=== PATIENT | male | born 1980 | race Caucasian/White ===

== ENCOUNTER 2020-09-16 07:08 | Inpatient (IN) | payer MEDICAID, OTHER ==
[~2020-09-16] VITALS: Ht 175.3 cm; Wt 97.2 kg
[2020-09-21] MEDS ORDERED: acetaminophen 325mg tablet PO PRN ×2 (10:30)
[2020-09-21] MEDS ORDERED: magnesium hydroxide 30ml (MOM) UD suspension PO PRN (10:30)
[2020-09-21] MEDS ORDERED: mag hydrox/Alum hydrox/simeth 30ml oral suspension PO PRN (10:30)
[2020-09-21] MEDS ORDERED: loperamide 2mg capsule PO PRN (10:30)
[2020-09-21 10:43] VITALS: BP 148/87
[2020-09-21] MEDS ORDERED: CEPH-572 PO (12:56)
[2020-09-21] MEDS ORDERED: DOXY-1 PO (12:56)
[2020-09-21] MEDS ORDERED: CLON-527 PO (13:34)
[2020-09-21] MEDS ORDERED: ESZO1TAB11 PO (13:34)
[2020-09-21] MEDS ORDERED: ALLO300T8 PO (13:34)
[2020-09-21] MEDS ORDERED: DULO-31 PO (13:34)
[2020-09-21] MEDS ORDERED: OXYC-145 PO (13:34)
[2020-09-21] MEDS ORDERED: zolpidem 5mg tablet PO PRN (14:05)
[2020-09-21] MEDS: oxyCODONE/APAP 5-325mg tablet PO PRN ×2 (14:19→21:09)
[2020-09-21] MEDS: clonazePAM 1mg tablet PO PRN (14:21)
--- NOTE | 2020-09-21 14:36 | NUR ---
ADMIT NOTE Pt is a 40y/o direct admit from [facility] on a 5150 for DTS, arriving on the unit at 1030. Safety check completed and belongings inventoried. Pt presented to ED in [place] on 09/15/20 for a large self inflicted left arm laceration. Pt states it was not an attempt to kill himself, but rather an attempt to prove to my mother that I would do it. Reports hx of PTSD, Depression, and anxiety and denies any prior suicide attempts. States that the stress from being his parents caretakers for the past 2 years has been overwhelming. Medical Hx: gout, psoriatic arthritis, chronic pain (L5S1 fusion) Covid: negative Left wrist Wound care instructions: wash wound daily with soap and water and blot dry. Change dressing daily. F/U with Orthopedics 14 days after staple placement (09/29/20) per Dr. Arriaga at [facility]
[2020-09-21] MEDS: cephalexin 500mg capsule PO SCH ×2 (17:35→21:08)
[2020-09-21 20:08] VITALS: BP 132/72
[2020-09-21] MEDS ORDERED: traZODone 50mg tablet PO SCH (21:00)
[2020-09-21] MEDS: DOXYCYCLINE 100MG CAPSULE PO SCH (21:07)
[2020-09-21] MEDS: lithium carbonate 300mg SR tablet (LithoBID) PO SCH (21:08)
[2020-09-21] MEDS: lactobacillus rhamnosus 10,000 MMU CELLS/CAPSULE PO SCH (21:08)
--- NOTE | 2020-09-22 00:51 | NUR ---
Nursing Progress Note Legal hold: 5150 Client on involuntary status for DTS Report received from nurse with use of SBAR. Why are they here: Pt is a 40y/o direct admit from [facility] on a 5150 for DTS, arriving on the unit at 1030. Safety check completed and belongings inventoried. Pt presented to ED in [place] on 09/15/20 for a large self inflicted left arm laceration. Pt states it was not an attempt to kill himself, but rather an attempt to prove to my mother that I would do it. Reports hx of PTSD, Depression, and anxiety and denies any prior suicide attempts. States that the stress from being his parents caretakers for the past 2 years has been overwhelming. Assessment What has happened this shift: Pt awake in room on bed at start of shift. His affect is bright and cheerful. When he talks about his self injury his demeanor is incongruent with the seriousness of his injury. His explanation of why he did it was because when he threatened to do it his mother said "go ahead I don't care". The pt seems totally unaware that this is not a logical explanation for self injury. Reviewed pts medications with him he requested an increase in his Percocet. Ghada WATTS did not increase his Percocet but added an order for ibuprofen if needed. Pt seemed satisfied, he did not ask for ibuprofen. Pt has a extensive knowledge of street drugs. That OxyContin is "better" crushed That Heroin can substitute for prescription pain medications. Pt said he has taken Ambien with a glass of wine to green party. Pt came to group room for snack spent the rest of the time in his room. S/I, H/I: Denies A/VH: Denies Sleep: Asleep at this time ADL's: Independent. Group attendance: NA Were meds taken: Yes Any med S/E No Mental Status Exam Appearance: Clean and well groomed Eye contact: Good Behavior: Pleasant and cooperative Speech: Clear normal rate and volume Mood: Cheerful incongruent with circumstance Affect: Bright Thought process: Logical Linear Thought Content: Medications Cognition: AOx4 Insight: poor Judgment: poor Interventions Interventions PRN's used: Ambien Therapeutic interventions: 1:1 assessment, establishment of rapport, therapeutic communication, active listening, medication administration/education/monitoring, maintained a safe and therapeutic environment, and maintained Q 15min safety checks. Restraints/seclusion/emergency medication: None Justification of Continued Inpatient Treatment: Patient a high risk discharge r/t to self mutilation. Pt to requires medication adjustment and a therapeutic milieu in interrupt current crisis.
[2020-09-22] MEDS: oxyCODONE/APAP 5-325mg tablet PO PRN ×5 (02:01→22:16)
[2020-09-22] MEDS: ibuprofen tablet 400 MG TABLET PO PRN (05:19)
[2020-09-22 07:32] VITALS: BP 113/88
[2020-09-22] MEDS: DOXYCYCLINE 100MG CAPSULE PO SCH ×2 (07:40→20:20)
[2020-09-22] MEDS: allopurinol 300 MG tablet PO SCH (07:41)
[2020-09-22] MEDS: lactobacillus rhamnosus 10,000 MMU CELLS/CAPSULE PO SCH (07:41)
[2020-09-22] MEDS: duloxetine 30mg CAPSULE.DR PO SCH (07:41)
[2020-09-22] MEDS: cephalexin 500mg capsule PO SCH ×4 (07:41→20:20)
[2020-09-22] MEDS: clonazePAM 1mg tablet PO PRN (07:47)
[2020-09-22] MEDS ORDERED: duloxetine 30mg CAPSULE.DR PO SCH (08:00)
[2020-09-22 08:33] LABS: HEMOGLOBIN A1C 5.6 % (4.5-6.2)
[2020-09-22 09:23] LABS: CHOL/HDL RATIO 5.7 (0.00-4.99); CHOLESTEROL 189 MG/DL (0-200); HDL CHOLESTEROL 33 MG/DL (35-60); LDL CHOLESTEROL 105 MG/DL (50-100); TRIGLYCERIDES 408 MG/DL (20-135)
--- NOTE | 2020-09-22 15:33 | NUR ---
Nursing Progress Note Legal hold: 5150 Client on involuntary status for DTS Report received from nurse with use of SBAR. Why are they here: Pt is a 40y/o direct admit from [facility] on a 5150 for DTS, arriving on the unit at 1030. Safety check completed and belongings inventoried. Pt presented to ED in [place] on 09/15/20 for a large self inflicted left arm laceration. Pt states it was not an attempt to kill himself, but rather an attempt to prove to my mother that I would do it. Reports hx of PTSD, Depression, and anxiety and denies any prior suicide attempts. States that the stress from being his parents caretakers for the past 2 years has been overwhelming. Assessment What has happened this shift: Pt awake in room on bed at start of shift. His affect is bright and cheerful. Pt initiated dressing change to his left arm wound and assisted the nurse during drsg change which he tolerated well with apparent no pain. Pt did c/o pain after drsg change complete. He also c/o pain in his lower back. Pt requesting medications for pain and anxiety and was given percocet and klonopin. PA later dc'd the klonopin and pt stated that it is probably a mistake b/c he's been taking it for years, but at [facility] report says he hasn't had it prescribed for 12 months. Pt has bright affect and denies suicidal thoughts at this time. S/I, H/I: Denies A/VH: Denies Sleep: Asleep at this time ADL's: Independent. Group attendance: NA Were meds taken: Yes Any med S/E No Mental Status Exam Appearance: Clean and well groomed Eye contact: Good Behavior: Pleasant and cooperative Speech: Clear normal rate and volume Mood: Cheerful incongruent with circumstance Affect: Bright Thought process: Logical Linear Thought Content: Medications Cognition: AOx4 Insight: poor Judgment: poor Interventions Interventions PRN's used: Therapeutic interventions: 1:1 assessment, establishment of rapport, therapeutic communication, active listening, medication administration/education/monitoring, maintained a safe and therapeutic environment, and maintained Q 15min safety checks. Restraints/seclusion/emergency medication: None Justification of Continued Inpatient Treatment: Patient a high risk discharge r/t to self mutilation. Pt to requires medication adjustment and a therapeutic milieu in interrupt current crisis.
[2020-09-22 20:01] VITALS: BP 128/73
[2020-09-22] MEDS: traZODone 50mg tablet PO SCH ×2 (20:20→21:05)
[2020-09-22] MEDS: lithium carbonate 300mg SR tablet (LithoBID) PO SCH (20:21)
--- NOTE | 2020-09-22 22:20 | NUR ---
Nursing Progress Note Legal hold: 5150 Client on involuntary status for DTS Report received from nurse with use of SBAR. Why are they here: Pt is a 40y/o direct admit from [facility] on a 5150 for DTS, arriving on the unit at 1030. Safety check completed and belongings inventoried. Pt presented to ED in [place] on 09/15/20 for a large self inflicted left arm laceration. Pt states it was not an attempt to kill himself, but rather an attempt to prove to my mother that I would do it. Reports hx of PTSD, Depression, and anxiety and denies any prior suicide attempts. States that the stress from being his parents caretakers for the past 2 years has been overwhelming. Assessment What has happened this shift: Pt was in the rec room at change of shift watching tv. He denies s/i and talks at length about situation at home with his parents. Pt states he is constantly cleaning up after his mother and they treat him like a child only allowing him to use the car to buy groceries but not to go out. He states his father is appreciative of him helping out but not his mother. He states the relationship with his mother is stressful for him and he is hopeful he will be able to move in with his sister. He states he would like to go back to work but with his arm the way it is, he will be out of work for at least 6 months before he will be able to return to work. Pt c/o pain in his arm and asks for percocet before going to bed. S/I, H/I: Denies A/VH: Denies Sleep: see sleep hours ADL's: Independent. Group attendance: NA Were meds taken: Yes Any med S/E No Mental Status Exam Appearance: Clean and well groomed Eye contact: Good Behavior: Pleasant and cooperative Speech: Clear normal rate and volume Mood: pleasant Affect: Bright Thought process: Logical Linear Thought Content: moving out of his parents home, frustrations with living with parents and overwhelmed with taking care of them. Cognition: AOx4 Insight: fair Judgment: poor Interventions Interventions PRN's used: percocet Therapeutic interventions: 1:1 assessment, establishment of rapport, therapeutic communication, active listening, medication administration/education/monitoring, maintained a safe and therapeutic environment, and maintained Q 15min safety checks. Restraints/seclusion/emergency medication: None Justification of Continued Inpatient Treatment: Patient a high risk discharge r/t to self mutilation. Pt to requires medication adjustment and a therapeutic milieu in interrupt current crisis.
[2020-09-23 07:06] VITALS: BP 102/56
[2020-09-23] MEDS: oxyCODONE/APAP 5-325mg tablet PO PRN ×3 (08:11→20:17)
[2020-09-23] MEDS: DOXYCYCLINE 100MG CAPSULE PO SCH ×2 (08:11→20:17)
[2020-09-23] MEDS: lactobacillus rhamnosus 10,000 MMU CELLS/CAPSULE PO SCH (08:11)
[2020-09-23] MEDS: cephalexin 500mg capsule PO SCH ×4 (08:11→20:17)
[2020-09-23] MEDS: allopurinol 300 MG tablet PO SCH (08:12)
[2020-09-23] MEDS: duloxetine 30mg CAPSULE.DR PO SCH (08:12)
[2020-09-23] MEDS: ibuprofen tablet 400 MG TABLET PO PRN (11:10)
--- NOTE | 2020-09-23 14:45 | NUR ---
Met with Yonny to complete psychosocial assessment. He reported he is planning on going to his sister's house in [place] upon discharge. Encouraged him to access rehab and informed him that [facility] pays for it and that we could call to get approval and referral. Yonny declined and stated he does not want to go to rehab right now. Yonny did not have sister's number and gave travel writer permission to call his mother to get the sister's phone number. Called Yonny's mom, Olga ([phone]# [phone]). Olga reported Yonny needs to go to rehab and that she had found over 100 xanax bars in a lunesta pill bottle. She noted this is what caused the argument before Yonny cut himself. She noted she is afraid of him and had thought he was going to try to stab her with the knife. She provided the sister's phone number and stated she is going to call the sister and tell her to not let Yonny stay with her. Called Yonny's sister, Clemencia (ph# [phone]). She reported her mother had already tried calling her. Informed her that Yonny wants to stay with her which she was aware of. Informed her that [facility], has recommended that Yonny go to rehab. Clemencia reported she cannot go against medical advice and will not picker and packer Yonny until he goes to rehab. Explained that we cannot force Yonny to go, rather it is has to be a choice. Informed her that [facility] is not a rehab and he would need to go elsewhere. Informed Yonny that his sister is not going to allow him to stay with her unless he goes to rehab. Re-visited rehab as an option and again he stated he is not interested. He reported he will find another ride and a way out of here. NIGEL Ramsey
--- NOTE | 2020-09-23 17:20 | NUR ---
Nursing Progress Note Legal hold: 5150 Client on involuntary status for DTS Report received from Sandi RODRIGUEZ with use of SBAR. Why are they here: Pt is a 40y/o direct admit from [facility] on a 5150 for DTS, arriving on the unit at 1030. Safety check completed and belongings inventoried. Pt presented to ED in [place] on 09/15/20 for a large self inflicted left arm laceration. Pt states it was not an attempt to kill himself, but rather an attempt to prove to my mother that I would do it. Reports hx of PTSD, Depression, and anxiety and denies any prior suicide attempts. States that the stress from being his parents caretakers for the past 2 years has been overwhelming. Assessment What has happened this shift: Received pt asleep in bed. Pt awoke for breakfast. Pt has bright affect and is social. Pt continues to endorse depression, but denies suicidal thoughts. Pt continues to be concerned with getting his klonopin "fixed". After speaking with PA, pt did not trying anymore to get more benzodiazepines, but requesting more pain meds: percocet and ibuprofen. Pt independent with dressing change to left arm wound. Pt visible on the unit, but has limited interaction with peers and is more interactive with staff. S/I, H/I: Denies A/VH: Denies Sleep: Asleep at this time ADL's: Independent. Group attendance: NA Were meds taken: Yes Any med S/E No Mental Status Exam Appearance: Clean and well groomed Eye contact: Good Behavior: Pleasant and cooperative Speech: Clear normal rate and volume Mood: Cheerful incongruent with circumstance Affect: Bright Thought process: Logical Linear Thought Content: Medications Cognition: AOx4 Insight: poor Judgment: poor Interventions Interventions PRN's used: percocet, ibuprofen Therapeutic interventions: 1:1 assessment, establishment of rapport, therapeutic communication, active listening, medication administration/education/monitoring, maintained a safe and therapeutic environment, and maintained Q 15min safety checks. Restraints/seclusion/emergency medication: None Justification of Continued Inpatient Treatment: Patient a high risk discharge r/t to self mutilation. Pt to requires medication adjustment and a therapeutic milieu in interrupt current crisis.
[2020-09-23 19:15] VITALS: BP 123/83
[2020-09-23] MEDS: traZODone 50mg tablet PO SCH ×2 (20:16→21:03)
[2020-09-23] MEDS: lithium carbonate 300mg SR tablet (LithoBID) PO SCH (20:16)
--- NOTE | 2020-09-23 22:11 | NUR ---
Nursing Progress Note Legal hold: 5150 Client on involuntary status for DTS Report received from Izaiah RODRIGUEZ with use of SBAR. Why are they here: Pt is a 40y/o direct admit from [facility] on a 5150 for DTS, arriving on the unit at 1030. Safety check completed and belongings inventoried. Pt presented to ED in [place] on 09/15/20 for a large self inflicted left arm laceration. Pt states it was not an attempt to kill himself, but rather an attempt to prove to my mother that I would do it. Reports hx of PTSD, Depression, and anxiety and denies any prior suicide attempts. States that the stress from being his parents caretakers for the past 2 years has been overwhelming. Assessment What has happened this shift: Pt was in his room at change of shift. Pt states he is looking forward to getting out of here and plans to go live with his sister and thinks that will be a good change for him. Pt asked about evening meds and states he thinks he will need both trazadone doses to go to sleep and wants to know when his next percocet is available. pt decided he would wait and take percocet with evening med pass and reports arm pain at 6/10 but reports it as 7/10 at med pass. Pt took meds and returned to his room attempting to sleep. Took a second dose of trazodone then got up and watched tv before going back to bed. S/I, H/I: Denies A/VH: Denies Sleep: see sleep hours ADL's: Independent. Group attendance: NA Were meds taken: Yes Any med S/E No Mental Status Exam Appearance: Clean and well groomed Eye contact: Good Behavior: Pleasant and cooperative Speech: Clear normal rate and volume Mood: Cheerful incongruent with circumstance Affect: Bright Thought process: Logical Linear Thought Content: Medications Cognition: AOx4 Insight: poor Judgment: poor Interventions Interventions PRN's used: percocet, Therapeutic interventions: 1:1 assessment, establishment of rapport, therapeutic communication, active listening, medication administration/education/monitoring, maintained a safe and therapeutic environment, and maintained Q 15min safety checks. Restraints/seclusion/emergency medication: None Justification of Continued Inpatient Treatment: Patient a high risk discharge r/t to self mutilation. Pt to requires medication adjustment and a therapeutic milieu in interrupt current crisis.
[2020-09-24 07:20] VITALS: BP 116/72
[2020-09-24] MEDS: duloxetine 30mg CAPSULE.DR PO SCH (08:35)
[2020-09-24] MEDS: DOXYCYCLINE 100MG CAPSULE PO SCH (08:35)
[2020-09-24] MEDS: cephalexin 500mg capsule PO SCH ×2 (08:35→13:00)
[2020-09-24] MEDS: allopurinol 300 MG tablet PO SCH (08:35)
[2020-09-24] MEDS: lactobacillus rhamnosus 10,000 MMU CELLS/CAPSULE PO SCH (08:35)
[2020-09-24] MEDS: oxyCODONE/APAP 5-325mg tablet PO PRN ×2 (08:39→13:22)
[2020-09-24] MEDS ORDERED: TRAZ-251 PO (14:38)
[2020-09-24] MEDS ORDERED: CEPH500C5 PO (14:38)
[2020-09-24] MEDS ORDERED: LIT300C PO (14:38)
[2020-09-24] MEDS ORDERED: DULO30CA52 PO (14:38)
[2020-09-24] MEDS ORDERED: PER5325T PO (14:38)
[2020-09-24] MEDS ORDERED: DOXY-224 PO (14:38)
== END 2020-09-24 15:03 | disposition short-term general hospital (02) | DRG 751 ==
LOC: ADULT MH 09-21 10:23 → EDBD 09-21 10:23 → ADULT MH 09-21 12:31
PROVIDERS: ADMIT Psychiatry & Neurology Psychiatry; ATTEND Family Medicine
DX: F33.2 Major depressive disorder, recurrent severe without psychotic features (principal); F43.10 Post-traumatic stress disorder, unspecified; S41.112A Laceration without foreign body of left upper arm, initial encounter; L40.9 Psoriasis, unspecified; E66.9 Obesity, unspecified; F15.10 Other stimulant abuse, uncomplicated; F17.210 Nicotine dependence, cigarettes, uncomplicated; X78.1XXA Intentional self-harm by knife, initial encounter; M10.9 Gout, unspecified; Z79.899 Other long term (current) drug therapy; Z98.1 Arthrodesis status; Z83.3 Family history of diabetes mellitus; Z82.49 Family history of ischemic heart disease and other diseases of the circulatory system; Y93.89 Activity, other specified; Y92.89 Other specified places as the place of occurrence of the external cause; Y99.8 Other external cause status; Z68.31 Body mass index [BMI] 31.0-31.9, adult
CPT/HCPCS: 36415; 80061; 83036; 87081

== ENCOUNTER 2021-05-16 09:04 | Emergency (ER) | payer MEDICAID ==
[~2021-05-16] VITALS: Ht 175.3 cm; Wt 90.0 kg
[~2021-05-16 09:04] MED LIST: ALLO300T8 PO; CEPH-585 PO; DOXY-224 PO; DULO30CA52 PO; LIT300C PO; PER5325T PO; TRAZ-251 PO
[2021-05-16] MEDS ORDERED: SULF1TAB49 PO (09:51)
[2021-05-16] MEDS ORDERED: HYDR-3965 PO (09:51)
[2021-05-16] MEDS ORDERED: CEPH-585 PO (09:51)
[2021-05-16] MEDS ORDERED: TETanus/Pertussis (Acell)/Diphther VAC/PF (Tdap-Adult) 0.5ml syringe IMVAC ONE (09:55)
[2021-05-16] MEDS ORDERED: LIDOcaine 1% W/epiNEPHrine 1:200,000 10ml vial IJ ONE (09:55)
[2021-05-16 13:56] VITALS: BP 110/79
== END 2021-05-16 18:44 | disposition home or self-care (01) ==
LOC: ER 09:05
DX: L02.512 Cutaneous abscess of left hand (principal); L03.012 Cellulitis of left finger; Z88.8 Allergy status to other drugs, medicaments and biological substances; Z79.2 Long term (current) use of antibiotics; Z79.899 Other long term (current) drug therapy
CPT/HCPCS: 10060; 90471; 90715; 99283

== ENCOUNTER 2021-06-22 12:57 | Emergency (ER) | payer MEDICAID ==
[~2021-06-22] VITALS: Ht 175.3 cm; Wt 93.0 kg
[2021-06-22 13:11] VITALS: BP 146/99
[2021-06-22] MEDS ORDERED: buprenorphine/naloxone 8MG-2MG SUBlingual film SL STA (13:31)
[2021-06-22] MEDS ORDERED: ondansetron 4mg rapidly disintigrating tab PO ONE (13:35)
[2021-06-22] MEDS ORDERED: acetaminophen 325mg tablet PO ONE (13:35)
[2021-06-22] MEDS ORDERED: ONDA4TAB6 PO (13:42)
== END 2021-06-22 13:54 | disposition home or self-care (01) ==
LOC: ER 12:58
DX: B34.9 Viral infection, unspecified (principal); F41.9 Anxiety disorder, unspecified; Z88.8 Allergy status to other drugs, medicaments and biological substances; Z79.899 Other long term (current) drug therapy
CPT/HCPCS: 99284

== ENCOUNTER 2022-10-01 10:05 | Emergency (ER) | payer MEDICAID ==
[~2022-10-01] VITALS: Ht 175.3 cm; Wt 0.9 kg
[~2022-10-01 10:05] MED LIST changes: +ONDA4TAB6 PO
[2022-10-01 10:40] VITALS: BP 129/80
[2022-10-01] MEDS ORDERED: AMOX-117 PO (11:57)
[2022-10-01] MEDS ORDERED: HYDR-3965 PO (11:57)
== END 2022-10-01 12:07 | disposition home or self-care (01) ==
LOC: ER 10:05
DX: K04.7 Periapical abscess without sinus (principal); F41.9 Anxiety disorder, unspecified; Z88.8 Allergy status to other drugs, medicaments and biological substances; Z79.899 Other long term (current) drug therapy
CPT/HCPCS: 99283

== ENCOUNTER 2024-08-23 18:55 | Emergency (ER) | payer MEDICAID ==
[~2024-08-23] VITALS: Ht 172.7 cm; Wt 95.0 kg
[2024-08-23 19:07] VITALS: TEMP 99.2
[2024-08-23] MEDS: normal saline 1000ml 1,000 ML IV ONE (19:51)
[2024-08-23] MEDS: LORazepam 2 mg/ml vial IV ONE (19:57)
[2024-08-23 20:00] LABS: BASOPHILS # (AUTO) 0.1 X10'3 (0-0.2); BASOPHILS % (AUTO) 0.7 % (0-1); EOSINOPHILS % (AUTO) 0.1 % (0-6); HEMATOCRIT 48.8 % (42.0-52.0); HEMOGLOBIN 16.1 g/dl (14.0-17.9); LYMPHOCYTES # (AUTO) 2.6 X10'3 (1.1-4.8); LYMPHOCYTES % (AUTO) 15.3 % (21-51); MEAN CORPUSCULAR HEMOGLOBIN 20.4 PG (27.0-31.0); MEAN CORPUSCULAR VOLUME 61.9 FL (78-98); MEAN PLATELET VOLUME 8.6 FL (7.4-10.4); MONOCYTES # (AUTO) 1.2 X10'3 (0-0.9); MONOCYTES % (AUTO) 6.9 % (2-12); NEUTROPHILS # (AUTO) 13.1 X10'3 (1.8-7.7); PLATELET COUNT 294 X10'3 (140-440); RED BLOOD COUNT 7.88 X10'6 (4.70-6.10); RED CELL DISTRIBUTION WIDTH 16.4 % (11.5-14.5)
[2024-08-23 20:14] LABS: ALANINE AMINOTRANSFERASE 30 U/L (12-78); ALBUMIN/GLOBULIN RATIO 0.9 (1.1-1.5); ALKALINE PHOSPHATASE 89 IU/L (46-116); ANION GAP 14 (8-16); ASPARTATE AMINO TRANSFERASE 50 U/L (10-37); BILIRUBIN,TOTAL 1.2 MG/DL (0.1-1.0); BLOOD UREA NITROGEN 36 MG/DL (7-18); BUN/CREATININE RATIO 22.4 (10.0-20.0); CALCIUM 9.7 MG/DL (8.5-10.1); CHLORIDE 93 MMOL/L (99-107); CREATININE 1.61 MG/DL (0.60-1.10); GLUCOSE 108 MG/DL (70-104); POTASSIUM 4.2 MMOL/L (3.5-5.1); SODIUM 134 MMOL/L (135-145); TOTAL CARBON DIOXIDE 26.9 MMOL/L (24-32); TOTAL PROTEIN 10.3 G/DL (6.4-8.2); eCRCL 55 ML/MIN; eGFR 46 ML/MIN
[2024-08-23 20:16] LABS: ANISOCYTOSIS 1+; MICROCYTOSIS 1+; PLATELET ESTIMATE NORMAL
[2024-08-23 20:22] LABS: ETHANOL < 10 MG/DL (<10); THYROID STIMULATING HORMONE 2.59 ulU/ml (0.34-4.50)
[2024-08-23] MEDS: ziprasidone IM 20mg inj **IM only IM ONE (21:19)
[2024-08-24 00:42] LABS: BILIRUBIN,URINE NEGATIVE (Neg); CLARITY,URINE CLEAR (Clear); COLOR,URINE YELLOW (Yellow); GLUCOSE, URINE NEGATIVE (Neg); KETONES,URINE 15 mg/dl (Neg); LEUKOCYTE ESTERASE ,URINE NEGATIVE (Neg); NITRITES, URINE NEGATIVE (Neg); OCCULT BLOOD,URINE SMALL (Neg); PROTEIN,URINE NEGATIVE (Neg); UROBILINOGEN,URINE 0.2 E.U/dL (0.2-1.0)
[2024-08-24 00:50] LABS: UA COLLECTION TYPE CLN CATCH MIDSTREAM
[2024-08-24 00:51] LABS: BACTERIA,URINE FEW /HPF (Neg); SQUAMOUS EPITHELIAL CELL,UR FEW /LPF (FEW); WBC,URINE 0-4 /HPF (0-4)
[2024-08-24 01:12] LABS: URINE AMPHETAMINE SCREEN NEGATIVE (Neg); URINE BARBITUATE SCREEN NEGATIVE (Neg); URINE BENZODIAZEPINES SCREEN NEGATIVE (Neg); URINE CANNABINOID SCREEN NEGATIVE (Neg); URINE COCAINE SCREEN NEGATIVE (Neg); URINE METHADONE SCREEN NEGATIVE (Neg); URINE OPIATE SCREEN NEGATIVE (Neg); URINE PHENCYCLIDINE SCREEN NEGATIVE (Neg)
[2024-08-24] MEDS: normal saline 1000ml 1,000 ML IV ONE (04:47)
[2024-08-24 05:23] VITALS: BP 137/76; PULSE 99; O2SAT 94
[2024-08-24 07:25] VITALS: RESP 16
[2024-08-24] MEDS ORDERED: GABA800T PO (08:33)
[2024-08-24] MEDS ORDERED: QUET-1 PO (08:33)
[2024-08-24] MEDS ORDERED: CLON0.5T4 PO (08:33)
[2024-08-24] MEDS ORDERED: LISD40CA PO (08:33)
[2024-08-24] MEDS ORDERED: CLON0.1T2 PO (08:33)
[2024-08-24] MEDS ORDERED: METF-900 PO (08:33)
[2024-08-24] MEDS ORDERED: CYCL-1 PO (08:33)
[2024-08-24] MEDS ORDERED: cloNIDine 0.1 mg tablet PO PRN (09:00)
[2024-08-24] MEDS: gabapentin 400mg capsule PO SCH (13:31)
[2024-08-24] MEDS ORDERED: metFORMIN 500mg tablet PO SCH (17:00)
[2024-08-24] MEDS ORDERED: quetiapine 100mg tablet PO SCH (21:00)
[2024-08-24] MEDS ORDERED: cyclobenzaprine 10mg tablet PO SCH (21:00)
[2024-08-25] MEDS ORDERED: lisdexamfetamine dimesylate 10mg capsule PO SCH (08:00)
[2024-08-25] MEDS ORDERED: clonazePAM 0.5mg tablet PO SCH (08:00)
[2024-08-25] MEDS ORDERED: allopurinol 300 MG tablet PO SCH (08:00)
== END 2024-08-24 13:56 | disposition home or self-care (01) ==
LOC: ER 18:59
DX: F29 Unspecified psychosis not due to a substance or known physiological condition (principal); F41.9 Anxiety disorder, unspecified; F17.200 Nicotine dependence, unspecified, uncomplicated; I48.91 Unspecified atrial fibrillation; Z88.8 Allergy status to other drugs, medicaments and biological substances; Z79.899 Other long term (current) drug therapy; Z79.2 Long term (current) use of antibiotics; Z20.822 Contact with and (suspected) exposure to COVID-19
CPT/HCPCS: 36415; 80053; 80305; 80320; 81001; 82948; 84145; 84443; 85008; 85025; 87811; 93005; 96361; 96372; 96374; 99285; J2060; J3486; J7030; A4615

== ENCOUNTER 2025-02-18 12:31 | Outpatient (CLI) | payer MEDICAID ==
[~2025-02-18 12:31] MED LIST changes: -CEPH-585 PO; +CLON0.1T2 PO; +CLON0.5T4 PO; +CYCL-1 PO; -DOXY-224 PO; -DULO30CA52 PO; +GABA800T PO; +LISD40CA PO; -LIT300C PO; +METF-900 PO; -ONDA4TAB6 PO; -PER5325T PO; +QUET-1 PO; -TRAZ-251 PO
--- NOTE | 2025-02-18 14:34 | RADIOLOGY REPORT ---
[facility] INDICATION: CERVICAL NECK PAIN COMPARISON: None TECHNIQUE: 3 views of the cervical spine were obtained. FINDINGS: Straightening of the cervical spine. The predental space is normal. The intervertebral disc spaces are well-maintained. No significant facet arthropathy is noted. No acute fracture, vertebral compression deformity or aggressive osseous lesions. The imaged lung apices are unremarkable. IMPRESSION: No acute fracture.
--- NOTE | 2025-02-18 14:40 | RADIOLOGY REPORT ---
INDICATION: POST LAMINECTOMY SYDROME COMPARISON: None TECHNIQUE: 5 views of the lumbar spine were obtained. FINDINGS: The lumbar vertebral alignment is normal. Postsurgical spinal hardware at L5-S1. The intervertebral disc spaces are well-maintained. No significant facet arthropathy is noted. No acute fracture, vertebral compression deformity or aggressive osseous lesions. The paravertebral soft tissues are grossly unremarkable. IMPRESSION: No acute fracture.
--- NOTE | 2025-02-18 18:56 | RADIOLOGY REPORT ---
PROCEDURE: MR MRI LUMBAR SPINE INDICATION: LBP Exam Date: 02/18/2025 01:19 PM COMPARISON: None TECHNIQUE: MRI lumbar spine without intravenous contrast. FINDINGS: The lumbar alignment is intact. Postsurgical changes L5-S1. The vertebral body heights and marrow si gnal are within normal limits. The visualized distal spinal cord and conus medullaris are within nor mal limits. The conus medullaris appears to terminate within normal limits. The visualized retroper itoneal and paraspinal soft tissues are unremarkable. The following axial levels are detailed below: T12-L1: Unremarkable. L1-L2: Unremarkable. L2-L3: Unremarkable. L3-L4: There is a moderate circumferential disc bulge complicated by facet arthropathy associated w ith mild bilateral neuroforaminal stenosis. No significant central canal stenosis. L4-L5: There is a moderate circumferential disc bulge complicated by facet arthropathy associated w ith moderate bilateral neuroforaminal stenosis. No significant central canal stenosis. L5-S1: No significant central canal or neural foraminal stenosis. IMPRESSION: 1. Postsurgical changes L5-S1. Multilevel degenerative disease. No significant central canal stenos is. Neural foraminal stenosis as above. HS:Y
== END 2025-02-18 23:59 | disposition home or self-care (01) ==
LOC: MRI 12:31
PROVIDERS: ATTEND Anesthesiology Pain Medicine
DX: M51.16 Intervertebral disc disorders with radiculopathy, lumbar region (principal); M96.1 Postlaminectomy syndrome, not elsewhere classified; M47.26 Other spondylosis with radiculopathy, lumbar region; Z98.890 Other specified postprocedural states
CPT/HCPCS: 72040; 72110; 72148

== ENCOUNTER 2025-05-31 10:33 | Emergency (ER) | payer MEDICAID ==
[~2025-05-31] VITALS: Ht 175.3 cm; Wt 87.7 kg
[2025-05-31 13:06] VITALS: BP 104/67; PULSE 96; RESP 18; O2SAT 96
--- NOTE | 2025-05-31 13:55 | Physician Documentation ---
History of Present Illness ~ Chief Complaint: Mental Health Eval Stated Complaint: MH EVAL Time Seen by MD: 13:09 Primary Medical Doctor: MARVA ROMEO Source: patient Mode of Arrival: POV Exam Limitations: no limitations HPI 45-year-old male who is currently living at a government housing facility in [facility] where they administer his medications but he is otherwise on his own. He is brought in with one of the staff members from this facility due to him getting verbally aggressive with another resident there last night and the other resident was fearful and concerned about the situation and alerted staff. Patient states that he was having a auditory hallucinations and that he has had auditory hallucinations for quite some time. He denies any known schizophrenia but states he is followed by mental health in his on Seroquel, clonidine, clonazepam, Vyvanse and gabapentin as well as several other medications. He has not had any recent dosage changes, medication changes in has not missed any of his medications. He states he wanted staff to bring him here today to get his blood pressure checked because he does have hypertension in his on lisinopril for this and was not sure if his blood pressure could be making him feel agitated. He had a urine drug screen at the facility before coming here which was reportedly negative other than amphetamines (patient on vyvanse). Medication Reconciliation Allergies: Coded Allergies: iron (Unverified Allergy, Unknown, 10/01/22) Scheduled Allopurinol (Allopurinol), 1 TAB PO QAM, (Reported) Clonazepam (Clonazepam), 1 TAB PO DAILY, (Reported) Cyclobenzaprine* (Cyclobenzaprine*), 1 TAB PO HS, (Reported) Gabapentin (Neurontin), 1 TAB PO TID, (Reported) Lisdexamfetamine Dimesylate (Vyvanse), 1 CAP PO QAM, (Reported) Metformin Hcl* (Metformin ER*), 2 TAB PO 1700 w/evening meal, (Reported) Quetiapine Fumarate* (Seroquel*), 1 TAB PO HS, (Reported) Scheduled PRN Clonidine HCl (Clonidine HCl), 1 TAB PO DAILY PRN for for anxiety/agitation, (Reported) Past Medical History Past Medical History: Anxiety Past Surgical History: no surgical history Patient History: Atrial fibrillation MOTHER Cardiac disorder in father FATHER FH: diabetes mellitus MOTHER Alcohol Use: None Drug Use: none Lives In: Home Review of Systems All Other Systems at this time: Reviewed and Negative Physical Exam Vital Signs: Temperature: 98.2, Source: Temporal, Heart Rate: 96, Respiratory Rate: 18, BP: 104/67, Pulse Oximetry: 96, Weight: 87.700 Oxygen Flow Rate: 0 Physical Exam General Appearance: Alert, WD/WN. NAD. HEENT: NCAT, PERRL, EOMI. Neck: Supple, trachea midline. Cardiovascular: RRR. No m/r/g. Lungs: CTAB. Breathing unlabored Extremities: Normal inspection. No edema. Skin: Warm/dry, normal color Neurological: Alert and oriented x4, normal gait. Psychiatric: Affect congruent with mood. Progress Results/Orders Results/Orders Vital Signs 05/31/25 05/31/25 05/31/25 05/31/25 10:37 13:03 13:06 14:12 Temp 98.2 98.2 Pulse 114 96 Resp 18 18 18 B/P (MAP) 126/84 104/67 (79) Pulse Ox 98 96 O2 Flow Rate 0 0 Medical Decision Making Differential Dx:Considerations: Include: Alcohol abuse, Anxiety, Bipolar disorder, Conversion disorder, Depression, Encephaloathy, Homicidal, Panic disorder, Personality disorder, Schizophrenia, Substance abuse, Suicidal, Other Departure Time of Disposition: 13:55 Disposition: 01 HOME / SELF CARE / HOMELESS Impression: Primary Impression: Insomnia Qualified Codes: G47.00 - Insomnia, unspecified Additional Impression: Auditory hallucinations Condition: Stable Discharge Instructions: Medical Screening Exam Additional Instructions: Reportedly having aggressive behavior last night however patient appears at baseline today without any concerns F/U WITH MENTAL HEALTH PROVIDER NORMAL EXAM CONTINUE WITH HOME MEDICATIONS Referrals: NO PRIMARY CARE PROVIDER (PCP) Education Educated: Patient Educated regarding: diagnosis, treatment, need for follow up Signature Scribe Signature: x Attestation: KEM Reilly May 31, 2025 13:55
[2025-05-31 14:12] VITALS: TEMP 98.2
[2025-06-01] MEDS ORDERED: LISI10TA27 PO (15:49)
[2025-06-01] MEDS ORDERED: BUPR1FIL20 (15:49)
[2025-06-01] MEDS ORDERED: DOCU-391 (15:49)
[2025-06-01] MEDS ORDERED: GABA-530 PO (15:49)
[2025-06-01] MEDS ORDERED: GABA-1555 PO (15:49)
[2025-06-01] MEDS ORDERED: DULO60CA65 PO (15:49)
[2025-06-01] MEDS ORDERED: SEMA1.7P (15:49)
== END 2025-05-31 14:14 | disposition home or self-care (01) ==
LOC: ER 10:34
DX: G47.00 Insomnia, unspecified (principal); R44.0 Auditory hallucinations; F41.9 Anxiety disorder, unspecified; I10 Essential (primary) hypertension; I48.91 Unspecified atrial fibrillation; Z88.8 Allergy status to other drugs, medicaments and biological substances
CPT/HCPCS: 99282

== ENCOUNTER 2025-06-01 15:29 | Emergency (ER) | payer MEDICAID ==
[~2025-06-01] VITALS: Ht 175.3 cm; Wt 93.0 kg
[2025-06-01] MEDS ORDERED: GABA-530 PO (15:49)
[2025-06-01] MEDS ORDERED: LISI10TA27 PO (15:49)
[2025-06-01] MEDS ORDERED: SEMA1.7P (15:49)
[2025-06-01] MEDS ORDERED: BUPR1FIL20 (15:49)
[2025-06-01] MEDS ORDERED: DOCU-391 (15:49)
[2025-06-01] MEDS ORDERED: GABA-1555 PO (15:49)
[2025-06-01] MEDS ORDERED: DULO60CA65 PO (15:49)
--- NOTE | 2025-06-01 15:51 | ELECTROCARDIOGRAPH REPORT ---
[facility] Test Date: 2025-06-01 Test Time: 15:36:56 Pat Name: MEHDI RUIZ Department: EMERGENCY ROOM Room: Gender: M Management Internship: RIC : 1980 Requested By: JANUARY GOMEZ Order Number: [id number] Reading MD: Measurements Intervals [place] Rate: 57 P: 17 [place]: 186 QRS: 11 QRSD: 111 T: 56 QT: 464 QTc: 452 Interpretive Statements Sinus bradycardia Abnormal R-wave progression, early transition Please click the below link to view image of tracing.
[2025-06-01 15:58] LABS: MEAN PLATELET VOLUME 9.0 FL (7.4-10.4); RED CELL DISTRIBUTION WIDTH 16.5 % (11.5-14.5)
[2025-06-01 16:14] LABS: CREATININE 1.28 MG/DL (0.60-1.10); PRO BRAIN NATRIURETIC PEPTIDE 108 PG/ML (0-125); TOTAL CARBON DIOXIDE 22.6 MMOL/L (24-32); eCRCL 71 ML/MIN; eGFR 60 ML/MIN
--- NOTE | 2025-06-01 16:15 | RADIOLOGY REPORT ---
CHEST RADIOGRAPH Indication: CP Technique: DI CHEST,SINGLE VIEW COMPARISON: None FINDINGS: The cardiac silhouette is enlarged. The lungs demonstrate bilateral patchy airspace opacities. The pulmonary vasculature is prominent. Small left pleural effusion. Old posterior 4th right rib fracture. There is no pneumothorax. IMPRESSION: Cardiomegaly with pulmonary vascular congestion and bilateral patchy airspace opacities. Small left pleural effusion
[2025-06-01 16:35] LABS: ETHANOL < 10 MG/DL (<10)
[2025-06-01] MEDS: naloxone 2mg/2ml inj IV STA (16:53)
[2025-06-01 17:11] LABS: ABG BASE EXCESS -2.9 mmol/L (-2.0-3.0); ABG HCO3 21.5 mmol/L (21.0-28.0); ABG OXYGEN SATURATION 96.3 % (94.0-98.0); ABG PCO2 (T) 35.6 mmHg (35.0-48.0); ABG PH (T) 7.398 (7.350-7.450); ABG PO2 (T) 90.1 mmHg (83.0-108.0); ALLEN'S TEST POSITIVE; FCOHb 0.5 % (0.5-1.5); FHHb 3.7 % (0.0-5.0); FIO2 36.0 mmHg/%; FLOW 4 L/min; FMetHb 0.0 % (0.0-1.5); FO2Hb 95.8 % (94.0-98.0); MODE NASAL CANNULA; PATIENT TEMPERATURE 36.6; TOTAL HEMOGLOBIN 11.9 G/dl (13.5-17.5)
[2025-06-01 17:15] VITALS: TEMP 97.1
--- NOTE | 2025-06-01 17:31 | RADIOLOGY REPORT ---
Procedure: CT CT HEAD JOSEPH [facility] Study Date and Requested Time: 06/01/2025 05:07 PM History: somnolence Comparison: None Dose: CTDI: 58.29 mGy DLP: 1070.53 mGycm Technique: Multiplanar images obtained through the brain without intravenous contrast. Findings: Normal brain volume and formation. Mild chronic small vessel ischemic changes. No hemorrhages, midline shift, herniation or cytotoxic edema following a large vascular territory. No intra-axial or extra-axial fluid collections. No evidence of hydrocephalus. The basal cisterns are patent. 2.6 x 2.1 by 3.1 cm left posterior fossa arachnoid cyst. The pituitary gland, sella and parasellar regions are unremarkable. The cerebellar tonsils are in normal position. The cerebellum is unremarkable. The orbits and globes are unremarkable. The paranasal sinuses and mastoids are clear. There are no worrisome calvarial lesions. Impression: No evidence of acute intracranial abnormality.
[2025-06-01] MEDS: normal saline 1000ml 1,000 ML IV ONE (17:34)
--- NOTE | 2025-06-01 17:39 | Physician Documentation ---
History of Present Illness ~ Chief Complaint: ALOC Stated Complaint: HYPOTENSIVE -5150 Time Seen by MD: 15:41 Primary Medical Doctor: MARVA ROMEO Mode of Arrival: EMS HPI 45 year old male BIB EMS reporting that the patient had called 911 complaining of shortness of breath. En route he was noted to be somnolent but arousable to aggressive stimulation and answering questions. Patient endorses taking clonazepam and suboxone. He has no other complaints but is very difficult to arouse. Medication Reconciliation Allergies: Coded Allergies: iron (Unverified Allergy, Unknown, 10/01/22) Scheduled Allopurinol (Allopurinol), 1 TAB PO QAM, (Reported) Clonazepam (Clonazepam), 1 TAB PO DAILY, (Reported) Cyclobenzaprine* (Cyclobenzaprine*), 1 TAB PO HS, (Reported) Duloxetine HCl (Duloxetine HCl), 1 CAP PO DAILY, (Reported) Gabapentin (Neurontin), 1 TAB PO TID, (Reported) Gabapentin (Gabapentin), 1 TAB PO TID, (Reported) Gabapentin (Gabapentin), 1 CAP PO TID, (Reported) Lisdexamfetamine Dimesylate (Vyvanse), 1 CAP PO QAM, (Reported) Lisinopril (Lisinopril), 1 TAB PO DAILY, (Reported) Metformin Hcl* (Metformin ER*), 2 TAB PO 1700 w/evening meal, (Reported) Quetiapine Fumarate* (Seroquel*), 1 TAB PO HS, (Reported) Scheduled PRN Clonidine HCl (Clonidine HCl), 1 TAB PO DAILY PRN for for anxiety/agitation, (Reported) Miscellaneous Medications Buprenorphine HCl/Naloxone HCl (Buprenorphine-Nalox 8-2Mg Film), (Reported) Docusate Sodium (Docusate Sodium), 200, (Reported) Semaglutide (Wegovy), (Reported) Past Medical History Past Medical History: Anxiety Past Surgical History: no surgical history Patient History: Atrial fibrillation MOTHER Cardiac disorder in father FATHER FH: diabetes mellitus MOTHER Alcohol Use: None Drug Use: none Lives In: Home Review of Systems All Other Systems at this time: Reviewed and Negative Physical Exam Vital Signs: RN Vital Signs have been reviewed: Yes, Temperature: 97.8, Source: Oral, Heart Rate: 78, Respiratory Rate: 22, BP: 110/57, Pulse Oximetry: 96, Weight: 93.000 Oxygen Flow Rate: 2.0 Physical Exam HEENT: PERRL, moist oral mucosa, EOMI Pulmonary: No respiratory distress CTAB Cardiac: RRR, no murmur, rub or gallop GI: nondistended, soft, nontender, no guarding, no rebound MSK: no deformity Skin: w/d/i, no rash Neuro: somnoloent and arousable to aggressive stimulation. Psych: normal affect Progress Results/Orders Results/Orders Orders - JANUARY GOMEZ MD Chest,Single View (06/01/25 15:49) Monitor (06/01/25 15:49) Saline Lock (06/01/25 15:49) Oxygen (06/01/25 15:49) Hs Troponin I W Calculations (06/01/25 17:49) Hs Troponin I W Calculations (06/01/25 18:49) Urinalysis (06/01/25 16:10) Drug Screen, Urine (06/01/25 16:10) Med Rec (06/01/25 16:10) Covid19 Binax Poc Result Entry (06/01/25 16:10) Regular Diet (06/01/25 Dinner) Ct Head (06/01/25 16:30) Abg (Arterial Blood Gas) (06/01/25 16:34) Normal Saline 1000ml (0.9% Sodium Chlori (06/01/25 17:20) Completed Orders - JANUARY GOMEZ MD Chest,Single View (06/01/25 15:49) Cbc/Diff (06/01/25 15:49) BMP (06/01/25 15:49) PBNP (06/01/25 15:49) Electrocardiogram (06/01/25 15:49) Hs Troponin I W Calculations (06/01/25 15:49) Ethanol (06/01/25 15:35) TSH (06/01/25 15:35) Naloxone 2mg/2ml Inj (Narcan 2mg/2ml Inj (06/01/25 16:30) Ct Head (06/01/25 16:30) Medications Received in ER Medications (Trade) Dose Ordered Sig/Noy Route PRN Reason Start Time Stop Time Status Last Admin Dose Admin (Narcan 2mg/2ml inj) 2 mg ONCE STAT IV 06/01/25 16:30 06/01/25 16:31 DC 06/01/25 16:53 2 MG Sodium Chloride 1,000 ml @ 1,000 mls/hr ONCE ONCE IV 06/01/25 17:20 06/01/25 18:19 06/01/25 17:34 1,000 MLS/HR Vital Signs 06/01/25 06/01/25 06/01/25 06/01/25 15:30 15:32 15:45 15:49 Temp 97.8 97.8 Pulse 69 66 64 Resp 16 32 20 12 B/P (MAP) 127/74 (91) 122/83 125/83 (97) Pulse Ox 98 95 98 O2 Flow Rate 2.0 0 2.0 06/01/25 06/01/25 06/01/25 06/01/25 16:00 16:30 16:45 17:15 Temp 97.1 Pulse 67 64 78 65 Resp 15 15 22 20 B/P (MAP) 125/83 (97) 124/78 (93) 110/57 (74) 108/69 (82) Pulse Ox 95 96 96 98 O2 Flow Rate 2.0 2.0 2.0 3.0 06/01/25 17:56 Pulse Ox 73 O2 Delivery Nasal Cannula* O2 Flow Rate 3 FiO2 32 Laboratory Tests Test 06/01/25 15:35 06/01/25 17:08 06/01/25 17:36 White Blood Count 12.2 H Red Blood Count 5.10 Hemoglobin 10.2 L Hematocrit 32.4 L Mean Corpuscular Volume 63.5 L Mean Corpuscular Hemoglobin 19.9 L Mean Corpuscular Hemoglobin Concent 31.4 L Red Cell Distribution Width 16.5 H Platelet Count 272 Mean Platelet Volume 9.0 Neutrophils (%) (Auto) 73.2 Lymphocytes (%) (Auto) 19.9 L Monocytes (%) (Auto) 6.1 Eosinophils (%) (Auto) 0.4 Basophils (%) (Auto) 0.4 Neutrophils # (Auto) 8.9 H Lymphocytes # (Auto) 2.4 Monocytes # (Auto) 0.8 Eosinophils # (Auto) 0.1 Basophils # (Auto) 0.0 CBC Comment Sodium Level 140 Potassium Level 2.9 *L Chloride Level 105 Carbon Dioxide Level 22.6 L Anion Gap 12 Blood Urea Nitrogen 30 H Creatinine 1.28 H Estimated GFR/1.73 m2 60 BUN/Creatinine Ratio 23.4 H Glucose Level 172 H Calcium Level 8.3 L Troponin I High Sensitivity 32 Pro-B-Type Natriuretic Peptide 108 Albumin 3.8 Thyroid Stimulating Hormone (TSH) 1.26 Chemistry Comments Ethyl Alcohol Level < 10 Blood Gas Specimen Type Arterial Blood Gas Puncture Site Rr O2 Saturation 96.3 Arterial Blood pH (Temp corrected) 7.398 Arterial Blood pCO2 (Temp correct) 35.6 Arterial Blood pO2 (Temp corrected) 90.1 Arterial Blood PO2/FiO2 Ratio 2.57 Arterial Blood HCO3 21.5 Arterial Blood Base Excess -2.9 L Arterial Blood Oxyhemoglobin 95.8 Arterial Blood Carboxyhemoglobin 0.5 Arterial Blood Methemoglobin 0.0 Arterial Blood Deoxyhemoglobin 3.7 Julien Test Positive Blood Gas Hemoglobin 11.9 L Blood Gas Temperature 36.6 Blood Gas Liter Flow 4 Blood Gas Modality Nasal cannula FiO2 36.0 Glucometer 119 H Medical Decision Making Findings 45 year old male as above, somnolent but arousable. Observed, labs returned nonspecific thus far but awaiting UA/utox. Patient continued to be progressively somnolent with sonorous respirations, protecting his airway however. Provided a dose of narcan with little to no response. CT head interpreted by me demonstrated no mass/shift/bleed. Have been providing IVF but blood pressures remain on the soft side. ABG also unremarkable. At this time we are treating this patient as an overdose of benzodiazepine and/or opioid, and I will hand him off to the oncoming ER physician for continued care and possible mental health evaluation when he metabolizes. Differential Dx:Considerations: Include: DKA, encephalopathy, hypercalcemia, hyponatremia, hypoxia, postictal, subarachnoid hemorrhage, encephalopathy, ETOH intoxication, infection - sepsis, infection - UTI, respiratory failure, hyperthermia, hypothermia Departure Disposition: 30 STILL A PATIENT Impression: Primary Impression: Intoxication by drug Additional Impression: Somnolence Condition: Stable Referrals: NO PRIMARY CARE PROVIDER (PCP) Signature Scribe Signature: . Attestation: . AJNUARY GOMEZ MD Jun 01, 2025 17:39
[2025-06-01] MEDS ORDERED: magnesium sulf-water 2g/50mL 50 ML IV PRN (18:05)
[2025-06-01] MEDS ORDERED: magnesium Cl slow-release 64mg tablet PO PRN (18:05)
[2025-06-01] MEDS ORDERED: potassium Cl 20 mEq SR tablet PO PRN ×2 (18:05)
[2025-06-01] MEDS ORDERED: magnesium sulf-water 4G/100mL 100 ML IV PRN (18:05)
[2025-06-01] MEDS: potassium Cl 40MEQ/1/2NS 520ml 520 ML IV PRN (18:25)
[2025-06-01 18:34] LABS: URINE AMPHETAMINE SCREEN POSITIVE (Neg); URINE BARBITUATE SCREEN NEGATIVE (Neg); URINE BENZODIAZEPINES SCREEN NEGATIVE (Neg); URINE CANNABINOID SCREEN NEGATIVE (Neg); URINE COCAINE SCREEN NEGATIVE (Neg); URINE METHADONE SCREEN NEGATIVE (Neg); URINE OPIATE SCREEN NEGATIVE (Neg); URINE PHENCYCLIDINE SCREEN NEGATIVE (Neg)
[2025-06-01 18:47] LABS: LEUKOCYTE ESTERASE ,URINE NEGATIVE (Neg); NITRITES, URINE NEGATIVE (Neg); OCCULT BLOOD,URINE SMALL (Neg)
[2025-06-01 18:50] LABS: UA COLLECTION TYPE NON-SPECIFIED
[2025-06-01 19:06] LABS: MUCUS STRANDS FEW /LPF (Neg); SQUAMOUS EPITHELIAL CELL,UR FEW /LPF (FEW)
[2025-06-01] MEDS: K and/or MAG REPLACEMENT MC SCH (20:00)
[2025-06-02 00:27] VITALS: BP 101/60; PULSE 89; RESP 14; O2SAT 98
== END 2025-06-02 00:30 | disposition home or self-care (01) ==
LOC: ER 15:31
DX: R06.02 Shortness of breath (principal); T42.4X5A Adverse effect of benzodiazepines, initial encounter; T40.495A Adverse effect of other synthetic narcotics, initial encounter; R40.0 Somnolence; F41.9 Anxiety disorder, unspecified; I48.91 Unspecified atrial fibrillation; Z88.8 Allergy status to other drugs, medicaments and biological substances; Z79.899 Other long term (current) drug therapy; Z79.84 Long term (current) use of oral hypoglycemic drugs; Z20.822 Contact with and (suspected) exposure to COVID-19; Y92.89 Other specified places as the place of occurrence of the external cause
CPT/HCPCS: 36415; 36600; 51702; 70450; 71045; 80048; 80305; 80320; 81001; 82803; 82948; 83735; 83880; 84443; 84484; 85018; 85025; 87811; 93005; 96361; 96374; 99285; J2312; J3480; J7030; A4615; C1758

== ENCOUNTER → 2025-07-04 | Emergency (ER) | payer MEDICAID ==
[~2025-07-04] VITALS: Ht 175.3 cm; Wt 76.0 kg
[~2025-07-04] MED LIST changes: +BUPR1FIL20; +DOCU-391; +DULO60CA65 PO; +GABA-1555 PO; +GABA-530 PO; +LISI10TA27 PO; +SEMA1.7P
--- NOTE | 2025-07-04 19:50 | ELECTROCARDIOGRAPH REPORT ---
[facility] Test Date: 2025-07-04 Test Time: 19:46:58 Pat Name: MEHDI RUIZ Department: [facility]- Patient ID: [facility]-[id number] Room: Gender: M Data Integration Analyst: : 1980 Requested By: JANE LEDEZMA Order Number: [id number] Reading MD: Dr. Lalit Costa Measurements Intervals [place] Rate: 77 P: 13 CA: 161 QRS: 9 QRSD: 93 T: 18 QT: 360 QTc: 408 Interpretive Statements Sinus rhythm Left ventricular hypertrophy Electronically Signed On 07-05-2025 7:40:[address] Lalit Costa Please click the below link to view image of tracing.
--- NOTE | 2025-07-04 20:01 | RADIOLOGY REPORT ---
CLINICAL HISTORY: CP TECHNIQUE: Single view of the chest was obtained. COMPARISON: DI CHEST,SINGLE VIEW on DOS: 06/01/25 FINDINGS: The heart size and pulmonary vasculature are normal. The lungs are clear. IMPRESSION: NO ACUTE CARDIOPULMONARY PROCESS.
--- NOTE | 2025-07-04 20:17 | Physician Documentation ---
History of Present Illness ~ Chief Complaint: Syncope Stated Complaint: NEAR SYNCOPE Time Seen by MD: 20:08 Primary Medical Doctor: MARVA ROMEO Mode of Arrival: POV, EMS HPI Patient presents to the emergency room from the [facility] with near syncopal episode. No head strike. Patient states he has been experienced these episodes lately. Started on Lasix a proximally three months ago in his also on [place]. Denies any diarrhea abdominal pain cough cold congestion or fever symptoms. Does note that his urine is very dark. Medication Reconciliation Allergies: Coded Allergies: iron (Unverified Allergy, Unknown, 10/01/22) Scheduled Allopurinol (Allopurinol), 1 TAB PO QAM, (Reported) Clonazepam (Clonazepam), 1 TAB PO DAILY, (Reported) Cyclobenzaprine* (Cyclobenzaprine*), 1 TAB PO HS, (Reported) Duloxetine HCl (Duloxetine HCl), 1 CAP PO DAILY, (Reported) Gabapentin (Neurontin), 1 TAB PO TID, (Reported) Gabapentin (Gabapentin), 1 TAB PO TID, (Reported) Gabapentin (Gabapentin), 1 CAP PO TID, (Reported) Lisdexamfetamine Dimesylate (Vyvanse), 1 CAP PO QAM, (Reported) Lisinopril (Lisinopril), 1 TAB PO DAILY, (Reported) Metformin Hcl* (Metformin ER*), 2 TAB PO 1700 w/evening meal, (Reported) Quetiapine Fumarate* (Seroquel*), 1 TAB PO HS, (Reported) Scheduled PRN Clonidine HCl (Clonidine HCl), 1 TAB PO DAILY PRN for for anxiety/agitation, (Reported) Miscellaneous Medications Buprenorphine HCl/Naloxone HCl (Buprenorphine-Nalox 8-2Mg Film), (Reported) Docusate Sodium (Docusate Sodium), 200, (Reported) Semaglutide (Wegovy), (Reported) Past Medical History Past Medical History: Anxiety Past Surgical History: no surgical history Patient History: Atrial fibrillation MOTHER Cardiac disorder in father FATHER FH: diabetes mellitus MOTHER Alcohol Use: None Drug Use: none Lives In: Home Review of Systems ROS All review of systems negative except as per HPI Physical Exam Vital Signs: Source: Oral, Heart Rate: 82, Respiratory Rate: 21, BP: 86/55, Pulse Oximetry: 93, Weight: 76.000 Physical Exam General: Patient is awake, alert, oriented x4 in no acute distress. Pale Head: Normocephalic and atraumatic. Eyes: Conjunctival normal. EOMI. PERRL. ENT: Mucous membranes dry. Neck: Supple, trachea is midline. Chest: Clear to auscultation bilaterally without rales, rhonchi, or wheezes. There is no accessory muscle use or retractions. Cardiac: RRR without murmurs, gallops, or rubs. Abd: Soft, nondistended, nontender, with normoactive bowel sounds. No guarding, rebound, or rigidity. Progress Results/Orders Results/Orders Orders - AAYUSH MURILLO MD Chest,Single View (07/04/25 19:47) Monitor (07/04/25 19:31) Saline Lock (07/04/25 19:31) Oxygen (07/04/25 19:31) Hs Troponin I W Calculations (07/04/25 22:31) Completed Orders - AAYUSH MURILLO MD Chest,Single View (07/04/25 19:47) Cbc/Diff (07/04/25 19:31) BMP (07/04/25 19:31) PBNP (07/04/25 19:31) Electrocardiogram (07/04/25 19:31) Hs Troponin I W Calculations (07/04/25 19:31) Hs Troponin I W Calculations (07/04/25 21:31) Procalcitonin (07/04/25 20:09) Normal Saline 1000ml (0.9% Sodium Chlori (07/04/25 20:10) Normal Saline 1000ml (0.9% Sodium Chlori (07/04/25 21:00) Medications Received in ER Medications (Trade) Dose Ordered Sig/Noy Route PRN Reason Start Time Stop Time Status Last Admin Dose Admin Sodium Chloride 1,000 ml @ 1,000 mls/hr ONCE ONCE IV 07/04/25 20:10 07/04/25 21:09 DC 07/04/25 20:22 1,000 MLS/HR Sodium Chloride 1,000 ml @ 1,000 mls/hr ONCE ONCE IV 07/04/25 21:00 07/04/25 21:59 DC 07/04/25 21:00 1,000 MLS/HR Vital Signs 07/04/25 07/04/25 07/04/25 07/04/25 19:26 19:34 19:35 21:07 Temp 98.3 Pulse 86 82 74 Resp 16 19 21 19 B/P (MAP) 86/55 86/55 (65) 92/53 (66) Pulse Ox 100 93 93 Laboratory Tests Test 07/04/25 19:54 07/04/25 21:49 White Blood Count 11.3 H Red Blood Count 3.95 L Hemoglobin 8.1 L Hematocrit 24.6 L Mean Corpuscular Volume 62.3 L Mean Corpuscular Hemoglobin 20.4 L Mean Corpuscular Hemoglobin Concent 32.7 L Red Cell Distribution Width 16.2 H Platelet Count 142 Mean Platelet Volume 10.0 Neutrophils (%) (Auto) 71.5 Lymphocytes (%) (Auto) 19.1 L Monocytes (%) (Auto) 7.0 Eosinophils (%) (Auto) 1.9 Basophils (%) (Auto) 0.5 Neutrophils # (Auto) 8.1 H Lymphocytes # (Auto) 2.2 Monocytes # (Auto) 0.8 Eosinophils # (Auto) 0.2 Basophils # (Auto) 0.1 CBC Comment Sodium Level 138 Potassium Level 3.8 Chloride Level 106 Carbon Dioxide Level 28.7 Anion Gap 3 L Blood Urea Nitrogen 9 Creatinine 0.90 Estimated GFR/1.73 m2 90 BUN/Creatinine Ratio 10.0 Glucose Level 97 Calcium Level 8.3 L Troponin I High Sensitivity 12 12 Pro-B-Type Natriuretic Peptide 129 H Albumin 3.0 L Procalcitonin < 0.05 Chemistry Comments Troponin I High Sens Percent Delta 0 Troponin I Hi Sens Absolute Change 0 EKG/XRAY/CT/US/VASC/MRI EKG : Additional Comment EKG interpreted by myself shows time of 1946, rate 77, sinus rhythm, normal axis, no ST changes Chest X-Ray : Additional Comments Exam: CHEST,SINGLE VIEW CLINICAL HISTORY: CP TECHNIQUE: Single view of the chest was obtained. COMPARISON: DI CHEST,SINGLE VIEW on DOS: 06/01/25 FINDINGS: The heart size and pulmonary vasculature are normal. The lungs are clear. IMPRESSION: NO ACUTE CARDIOPULMONARY PROCESS. Electronically Signed by:TOYA PAULINO MD Date & Time: 07/04/251958 Medical Decision Making Additional information obtaine: old records Findings Patient presented to the emergency room with near syncopal episode as per HPI. Differentials include but are not limited to dehydration vasovagal medication side effect, cardiac arrhythmia, pulmonary embolism therefore emergent labs ordered which were reassuring. That continued to watch patient's monitor and saw that has blood pressure improved with IV fluids over 100 however the patient eloped before I could re-evaluate him. Differential Dx:Considerations: Include: CVA Departure Disposition: LEFT AWOL/ELOPED Impression: Primary Impression: Syncope Additional Impression: Dehydration Condition: Fair Referrals: NO PRIMARY CARE PROVIDER (PCP) Signature Scribe Signature: No scribe Attestation: The note accurately reflects work and decisions made by me.Aayush Murillo MD 07/05/25 01:02 AAYUSH MURILLO MD Jul 04, 2025 20:17
[2025-07-04 20:18] LABS: MEAN PLATELET VOLUME 10.0 FL (7.4-10.4); RED CELL DISTRIBUTION WIDTH 16.2 % (11.5-14.5)
[2025-07-04] MEDS: normal saline 1000ml 1,000 ML IV ONE ×2 (20:22→21:00)
[2025-07-04 20:32] LABS: CREATININE 0.90 MG/DL (0.60-1.10); PRO BRAIN NATRIURETIC PEPTIDE 129 PG/ML (0-125); TOTAL CARBON DIOXIDE 28.7 MMOL/L (24-32); eCRCL 101 ML/MIN; eGFR 90 ML/MIN
[2025-07-04 21:07] VITALS: BP 92/53; PULSE 74; RESP 19; TEMP 98.3; O2SAT 93
== END | disposition left against medical advice (07) ==
LOC: ER 19:25
DX: R55 Syncope and collapse (principal); E86.0 Dehydration; I48.91 Unspecified atrial fibrillation; Z88.8 Allergy status to other drugs, medicaments and biological substances; R06.02 Shortness of breath
CPT/HCPCS: 36415; 71045; 80048; 83880; 84145; 84484; 85025; 93005; 96360; 96361; 99285; J7030